=== PATIENT | female | born 1945 | race Caucasian/White ===

== ENCOUNTER 2016-05-12 10:16 | Outpatient (CLI) ==
[2016-05-12 11:50] LABS: CHOL/HDL RATIO 5.3 (4.5-5.5)
== END 2016-05-12 10:17 | disposition home or self-care (01) ==
LOC: LAB 10:16
DX: E11.42 Type 2 diabetes mellitus with diabetic polyneuropathy (principal); E78.00 Pure hypercholesterolemia, unspecified
CPT/HCPCS: 36415; 80061; 83036

== ENCOUNTER 2016-08-25 08:46 | Outpatient (CLI) | payer OTHER ==
[2016-08-25 09:23] LABS: CHOL/HDL RATIO 3.6 (4.5-5.5)
== END 2016-08-25 08:47 | disposition home or self-care (01) ==
LOC: LAB 08:46
DX: E11.42 Type 2 diabetes mellitus with diabetic polyneuropathy (principal); E78.00 Pure hypercholesterolemia, unspecified
CPT/HCPCS: 36415; 80061; 83036

== ENCOUNTER 2016-11-24 08:38 | Outpatient (CLI) ==
[2016-11-24 09:28] LABS: CHOL/HDL RATIO 4.1 (4.5-5.5)
[2016-11-25 04:10] LABS: URINE CREATININE 67.5 mg/dL (Not Estab.)
[2016-11-26 07:20] LABS: URINE MALB/CR RATIO 41.6 mg/g creat (0.0-30.0)
== END 2016-11-24 08:39 | disposition home or self-care (01) ==
LOC: LAB 08:38
DX: E11.42 Type 2 diabetes mellitus with diabetic polyneuropathy (principal); E78.00 Pure hypercholesterolemia, unspecified
CPT/HCPCS: 36415; 80061; 82043; 83036

== ENCOUNTER 2017-06-16 08:22 | Outpatient (CLI) | END 2017-06-16 08:23 | disposition home or self-care (01) | LOC: LAB 08:22 | DX: E78.00 Pure hypercholesterolemia, unspecified (principal); E11.9 Type 2 diabetes mellitus without complications | CPT/HCPCS: 36415; 80061; 83036 ==

== ENCOUNTER 2017-09-17 10:07 | Outpatient (CLI) | END 2017-09-17 10:08 | disposition home or self-care (01) | LOC: LAB 10:07 | DX: E11.42 Type 2 diabetes mellitus with diabetic polyneuropathy (principal); I10 Essential (primary) hypertension | CPT/HCPCS: 36415; 80053; 82043; 83036 ==

== ENCOUNTER 2018-07-15 09:07 | Outpatient (CLI) | END 2018-07-15 09:08 | disposition home or self-care (01) | LOC: LAB 09:07 | DX: E78.00 Pure hypercholesterolemia, unspecified (principal); E11.42 Type 2 diabetes mellitus with diabetic polyneuropathy; I10 Essential (primary) hypertension | CPT/HCPCS: 36415; 80061; 82043; 83036 ==

== ENCOUNTER 2018-10-15 08:44 | Outpatient (CLI) | END 2018-10-15 08:45 | disposition home or self-care (01) | LOC: LAB 08:44 | DX: E11.42 Type 2 diabetes mellitus with diabetic polyneuropathy (principal); E78.00 Pure hypercholesterolemia, unspecified | CPT/HCPCS: 36415; 80061; 83036 ==